=== PATIENT | male | born 2000 | race Caucasian/White ===

== ENCOUNTER 2021-09-13 15:54 | Emergency (ER) | payer OTHER ==
[~2021-09-13] VITALS: Ht 167.6 cm; Wt 90.0 kg
[2021-09-13] MEDS ORDERED: LIDOCAINE 1%/EPI 1:200,000/PF 10 ML VIAL PERC ONE (18:00)
[2021-09-13] MEDS ORDERED: BACITRACIN 0.9 GM PACKET OINTMENT TP ONE (18:00)
[2021-09-13] MEDS ORDERED: PERTUSS(ACELL),DIPH,TET VAC/PF 0.5 ML SYRINGE IM. ONE (18:00)
[2021-09-13] MEDS ORDERED: LIDOCAINE 1%/EPI 1:200,000/PF 30 ML VIAL PERC ONE (19:00)
[2021-09-13] MEDS ORDERED: LIDOCAINE 2%/EPI 1:200,000/PF 10 ML VIAL PERC ONE (19:15)
[2021-09-13 20:52] VITALS: BP 137/85
== END 2021-09-13 20:56 | disposition home or self-care (01) ==
LOC: EMS 15:55
DX: S81.012A Laceration without foreign body, left knee, initial encounter (principal); X58.XXXA Exposure to other specified factors, initial encounter; Y93.89 Activity, other specified; Y92.89 Other specified places as the place of occurrence of the external cause; Y99.8 Other external cause status
CPT/HCPCS: 12002; 73562; 90471; 90715; 99283; J3490

== ENCOUNTER 2021-09-27 13:04 | Emergency (ER) | payer OTHER ==
[~2021-09-27] VITALS: Ht 172.7 cm; Wt 79.5 kg
[2021-09-27 13:19] VITALS: BP 145/86
== END 2021-09-27 17:57 | disposition home or self-care (01) ==
LOC: EMS 13:07
DX: S81.012D Laceration without foreign body, left knee, subsequent encounter (principal); X58.XXXD Exposure to other specified factors, subsequent encounter; Z48.02 Encounter for removal of sutures
CPT/HCPCS: 99281; Z7502

== ENCOUNTER 2022-02-09 13:02 | Emergency (ER) | payer OTHER ==
[~2022-02-09] VITALS: Ht 165.1 cm; Wt 77.3 kg
[2022-02-09] MEDS ORDERED: PENICILLIN V POTASSIUM 500 MG TABLET PO ONE (13:45)
[2022-02-09] MEDS ORDERED: IBUPROFEN 600 MG TABLET PO ONE (13:45)
[2022-02-09] MEDS ORDERED: PENI500T2 PO (14:04)
[2022-02-09] MEDS ORDERED: TRAM50TA4 PO (14:04)
[2022-02-09 14:05] VITALS: BP 146/93
== END 2022-02-09 14:12 | disposition home or self-care (01) ==
LOC: EMS 13:06
DX: K04.7 Periapical abscess without sinus (principal); K08.89 Other specified disorders of teeth and supporting structures; F12.90 Cannabis use, unspecified, uncomplicated
CPT/HCPCS: 99283

== ENCOUNTER 2024-01-26 17:27 | Emergency (ER) | payer OTHER ==
[~2024-01-26] VITALS: Ht 177.8 cm; Wt 81.8 kg
[~2024-01-26 17:27] MED LIST: PENI500T2 PO; TRAM50TA5 PO
[2024-01-26 17:35] VITALS: BP 138/98; PULSE 90; RESP 16; TEMP 97.9
[2024-01-26] MEDS: LIDOCAINE 1% 10 ML VIAL SQ ONE (20:43)
[2024-01-26] MEDS: PERTUSS(ACELL),DIPH,TET/PF 0.5 ML SYRINGE [ADULT] IM. ONE (20:44)
== END 2024-01-26 21:22 | disposition home or self-care (01) ==
LOC: EMS 17:39
DX: S41.111A Laceration without foreign body of right upper arm, initial encounter (principal); F12.90 Cannabis use, unspecified, uncomplicated; W26.8XXA Contact with other sharp object(s), not elsewhere classified, initial encounter; Y93.89 Activity, other specified; Y92.89 Other specified places as the place of occurrence of the external cause; Y99.8 Other external cause status
CPT/HCPCS: 99283; 90715; 90471; 12002; J3490